=== PATIENT | female | born 1950 | race American Indian/Alaskan Native ===

== ENCOUNTER 2017-04-05 07:15 | Day surgery (SDC) | payer MEDICARE, OTHER ==
[2017-03-26 10:52] VITALS: BMI 27.5
[2017-04-05] MEDS ORDERED: Lidocaine 2% w Epi 1:100,000 Inj IJ ONE (09:03)
[2017-04-05] MEDS ORDERED: Bupivacaine HCl 0.25% PF (10 ml) Inj ONE (09:03)
[2017-04-05] MEDS ORDERED: Sodium Chloride 0.9% 500 ML IV ONE (09:45)
[2017-04-05] MEDS ORDERED: ceFAZolin IV 1 gm in Dextrose 1 GM/50 ML BAG IVPB ONE (10:10)
[2017-04-05] MEDS ORDERED: ceFAZolin IV 2 gm in Dextrose 1 GM/50 ML BAG IVPB ONE (10:11)
[2017-04-05] MEDS ORDERED: Sodium Chloride 0.9% 1,000 ML IV SCH (10:30)
[2017-04-05] MEDS ORDERED: Oxycodone/Acetaminophen 5/325 mg Tab PO PRN (10:43)
--- NOTE | 2017-04-05 10:43 | PCM.SURG1 ---
Surgeon's Initial Post Op Note - Surgeon's Notes Surgeon: Patria Deputy Treasurer: Filiberto PGY2 Type of Anesthesia: Local Pre-Operative Diagnosis: Sebaceous cyst of chest wall Operative Findings: same Post-Operative Diagnosis: same Operation Performed: excision of sebaceous cyst Specimen/Specimens Removed: sebaceous cyst Estimated Blood Loss: EBL {In ML}: 10 Blood Products Given: N/A Drains Used: No Drains Post-Op Condition: Good Date of Surgery/Procedure: 04/05/17 Time of Surgery/Procedure: 10:43
[2017-04-05 10:58] VITALS: O2SAT 100
[2017-04-05 11:23] VITALS: BP 142/57; PULSE 68; RESP 15; TEMP 97.7
--- NOTE | 2017-04-05 16:14 | OP ---
PROCEDURE DATE: 04/05/2017 PREOPERATIVE DIAGNOSIS: Sebaceous cyst of the lower chest wall in the midline. POSTOPERATIVE DIAGNOSIS: Sebaceous cyst of the lower chest wall in the midline. PROCEDURE DONE: Excision of sebaceous cyst of the lower chest wall, 3 x 2 cm in size. SURGEON: Kingsley España M.D. PREPARER SAMPLES AND REPAIRS: Roman Cameron M.D. ANESTHESIA: Local anesthesia plus monitored stand by sedation. COMPLICATIONS: None. INTRAOPERATIVE FINDINGS: The patient had approximately 3 cm x 2 cm sebaceous cyst of the lower chest wall. DRAINS: None. PATHOLOGY: Sebaceous cyst was sent for pathology. INTRAOPERATIVE STEPS: This 67-year-old female was diagnosed with a sebaceous cyst of the lower chest wall. After consenting the patient, the patient was brought to the OR and placed supine on the operating table. The lower chest was prepped and draped in a usual sterile fashion. Local anesthesia was injected. An elliptical incision was made transversely and the sebaceous cyst was completely excised and it was sent off the table for the pathology. The wound was irrigated and wound was packed in 2 layers, the subcu with 3-0 Vicryl and skin with 4-0 Monocryl and 3-0 nylon to skin. Dry sterile dressing was applied. The patient tolerated the procedure well. Count of instruments and gauze was correct. There was no apparent complication. The patient was sent to the postanesthesia care unit in stable condition. Kingsley España MD cc: [id number] TT: 04/05/2017 16:13:43 sn MTDD
== END 2017-04-05 11:14 | disposition home or self-care (01) ==
LOC: C.SDS 07:15
PROVIDERS: ATTEND Surgery Surgical Critical Care
DX: L72.3 Sebaceous cyst (principal)
CPT/HCPCS: 11404; 12032; 82948; 88304; J0690; J7040